=== PATIENT | male | born 1975 | race Asian ===

== ENCOUNTER 2024-01-29 14:29 | Outpatient (AMB) | payer OTHER, SELFPAY ==
[2024-01-29 14:34] VITALS: BP 124/70; PULSE 84; TEMP 36.9; O2SAT 98; BMI 19.6
--- NOTE | 2024-01-29 14:34 | AM.OFFWIN_ITS ---
Intake Vital Signs 01/29/24 14:34 Height 5 ft 7 in Weight 125 lb BMI 19.6 BP 124/70 Blood Pressure Location Rt brachial Position Sitting Pulse 84 Pulse Source Pulse Oximeter Temp 98.4 F Temp Source Oral Pulse Oximetry (%) 98 Oxygen Delivery Method Room Air Intake Visit Reasons: EP Low Back pain Intake Note: pt c/o lower back pain. Started 3 weeks ago. Improving now. Patient Tobacco Use Status: Never used Tobacco Allergies No Known Allergies Allergy (Verified 01/29/24 15:43) Do you need a note to return to daycare/school/sports/work: No HPI EP Low Back pain HPI Details 48-year-old male presents to the office for a sick visit. Patient has an medical interpreter who is translating. Patient had low back pain for 2 weeks. Pain in the lower back radiating into his legs. No history of trauma or fall. No urinary incontinence. [facility] Medical History (Updated 01/29/24 @ 15:44 by Peterson Baltazar MD) Lower thoracic back pain Social History Patient Tobacco Use Status: Never used Tobacco Physical Exam Vital Signs: Last Vital Signs Temp 98.4 F 01/29/24 14:34 Pulse 84 01/29/24 14:34 BP 124/70 01/29/24 14:34 Pulse Ox 98 01/29/24 14:34 Oxygen Delivery Method Room Air 01/29/24 14:34 BMI result Body Mass Index 19.6 Const General: cooperative and healthy appearing Nutritional Appearance: well nourished Orientation/consciousness: patient oriented x3 Limitations: no limitations HEENT Head: Yes normal to inspection Eyes General: appearance normal, both eyes and all related structures Neck Neck: Yes normal visual inspection Chest Chest palpation & inspection: normal palpation of entire chest wall Resp Effort & Inspection: normal respiratory effort Neuro General: patient oriented x3 Assessment & Plan Assessment & Plan (1) Lower thoracic back pain: Code(s): M54.6 - Pain in thoracic spine Plan: Muscle relaxant called in. Patient was advised to use a heating pad. If symptoms do not get better to follow-up here. Coding Level of Care Code Est Pt Level 3 (12147) Diagnoses Lower thoracic back pain M54.6
== END 2024-01-29 15:48 | disposition home or self-care (01) ==
PROVIDERS: PCP Nurse Practitioner Family; Visit Provider Internal Medicine
DX: M54.6 Pain in thoracic spine (principal)

== ENCOUNTER → 2024-01-29 14:29 | Outpatient (BNVA) | payer OTHER, SELFPAY | PROVIDERS: PCP Nurse Practitioner Family | DX: M54.6 Pain in thoracic spine (principal) ==

== ENCOUNTER 2024-05-27 10:39 | Outpatient (REF) | payer OTHER, SELFPAY ==
[2024-05-27 11:57] LABS: MANUAL DIFF FLAG NO
[2024-05-27 12:34] LABS: Basophils Absolute Auto 0.1 X10*3/uL (0.0-0.2); Basophils Percent Auto 1.1 % (0-2); Eosinophils Absolute Auto 0.1 X10*3/uL (0.0-0.4); Hematocrit 48.9 % (42.0-52.0); Imm Gran Abs Auto 0.02 X10*3/uL (0.00-0.03); Imm Gran Pct Auto 0.4 % (0.0-0.4); Lymphocytes Absolute Auto 1.8 X10*3/uL (1.2-4.9); Mean Corpuscular HGB Conc 32.7 g/dl (31.0-36.0); Mean Corpuscular Hemoglobin 29.9 pg (27.0-33.0); Mean Corpuscular Volume 91.4 fL (80.0-98.0); Mean Platelet Volume 11.4 fL (9.4-12.4); Monocytes Absolute Auto 0.4 X10*3/uL (0.1-1.2); Monocytes Percent Auto 8.2 % (2-11); Neutrophils Percent Auto 55.3 % (45-73); Platelet Count 184 X10*3/uL (160-400); Red Blood Count 5.35 X10*6/uL (4.60-5.80); Red Cell Distribution Width 13.1 % (11.0-16.0); White Blood Count 5.4 X10*3/uL (4.8-10.8)
[2024-05-27 12:40] LABS: Estimated Average Glucose 111 mg/dL; Hemoglobin A1C 147.8294 umol/L; Hemoglobin A1c % 5.5 % (<6.0); Total Hemoglobin (HGBA1C) 4070.1212 umol/L
[2024-05-27 13:12] LABS: Alkaline Phosphatase 55 U/L (39-117); Anion Gap 11 (12-20); Aspartate Amino Transferase 24 U/L (5-37); Bilirubin Total 0.6 mg/dL (0.0-1.0); Blood Urea Nitrogen 21 mg/dL (9-16); Calcium 9.2 mg/dL (8.4-10.2); Carbon Dioxide 29 mmol/L (22-29); Chloride 105 mmol/L (96-108); Cholesterol 233 mg/dL (<200); Estimated Glomerular Filt Rate > 60; Glucose Fasting 93 mg/dL (60-99); HDL Cholesterol 63 mg/dL (>40); LDL Cholesterol Calculated 150 mg/dL (<100); Potassium 4.6 mmol/L (3.3-5.1); Sodium 140 mmol/L (135-145); Total Protein 8.5 g/dL (6.5-8.0); Triglycerides 101 mg/dL (<150)
[2024-05-27 13:25] LABS: Prostate Specific Antigen Scr 0.89 ng/mL (<0.05-4.0)
[2024-05-27 13:28] LABS: Alanine Aminotransferase 29 U/L (0-40); TSH reflex Free T4 2.94 uIU/mL (0.32-4.0); Vitamin D 25-OH Total 41.6 ng/mL (>30)
== END 2024-05-27 10:40 | disposition home or self-care (01) ==
LOC: HO.LAB 10:39
PROVIDERS: PCP Nurse Practitioner Family; Visit Provider Internal Medicine
DX: Z00.00 Encounter for general adult medical examination without abnormal findings (principal); M54.6 Pain in thoracic spine; K21.9 Gastro-esophageal reflux disease without esophagitis; E78.00 Pure hypercholesterolemia, unspecified; R73.01 Impaired fasting glucose; E55.9 Vitamin D deficiency, unspecified; D64.9 Anemia, unspecified; Z12.5 Encounter for screening for malignant neoplasm of prostate
CPT/HCPCS: 36415; 80053; 80061; 82306; 83036; 84153; 84443; 85025; 96127

== ENCOUNTER 2024-05-27 10:39 | Outpatient (AMB) | payer OTHER, SELFPAY ==
[2024-05-27 10:40] VITALS: BP 130/82; PULSE 77; O2SAT 98; BMI 19.6
--- NOTE | 2024-05-27 10:40 | A.OFFPC_ITS ---
Vital Signs 05/27/24 10:40 Height 5 ft 7 in Weight 125 lb BMI 19.6 BP 130/82 Blood Pressure Location Lt brachial Position Sitting Pulse 77 Pulse Source Pulse Oximeter Pulse Oximetry (%) 98 Oxygen Delivery Method Room Air Intake Visit Reasons: Establish care Accompanied by: Self / Same As Patient Allergies No Known Allergies Allergy (Verified 05/27/24 10:57) Medication List - Last Reconciled 05/27/24 by Toribio Isaac MD cyclobenzaprine 10 mg PO BEDTIME Tobacco use date assessed: 05/27/24 Dental Screening Dental Screen Date: 05/27/24 Did you have a dental visit in the last 12 months?: No Did you have a dental problem in the last 6 months where you did not have access to dental care?: No Was dental information given to patient?: No HPI Establish care HPI Details Patient comes in today to establish care His previous PCP was at [place] but states that he has not seen a doctor in several years Patient states that he has been experiencing on and off stomach discomfort at times lately States that he has been self-medicating with unrecalled OTC meds (possibly Prilosec) recently with (+) relief of his symptoms Also reports that he has been experiencing on and off pain over his lower back at times lately 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 and sometimes has to carry and move heavy boxes and weights, which makes his low back pain feel worse for a while States that he feels okay otherwise He denies any headaches or dizziness Denies any chest pains, no increased shortness of breath No nausea/vomiting; states that his abdominal pain has improved significantly with the OTC medication that he has been taking recently No change in bowel habits noted He denies any acute urinary symptoms [facility], [facility] Medical History (Updated 06/02/24 @ 04:06 by Toribio Isaac MD) Lower thoracic back pain Surgical History (Updated 06/02/24 @ 03:57 by Toribio Isaac MD) No pertinent past surgical history Social History Housing: House Patient Tobacco Use Status: Never used Tobacco e-Cigarette/Vaping Use: Never Used service: No Current occupational status: employed Current occupational exposures/hazards: No Cognitive needs: No Hearing needs: No Vision needs: No Questionnaire PHQ-9 Over the last 2 weeks, how often have you been bothered by any of the following problems? 1. Little interest or pleasure in doing things: not at all 2. Feeling down, depressed, or hopeless: not at all 3. Trouble falling or staying asleep, or sleeping too much: not at all 4. Feeling tired or having little energy: not at all 5. Poor appetite or overeating: not at all 6. Feeling bad about yourself - or that you are a failure or have let yourself or your family down: not at all 7. Trouble concentrating on things, such as reading the newspaper or watching television: not at all 8. Moving or speaking so slowly that other people could have noticed. Or the opposite - being so fidgety or restless that you have been moving around a lot more than usual: not at all 9. Thoughts that you would be better off or of hurting yourself in some way: not at all Total score: 0 Depression Screening Interpretation: Negative Depression Screening Done: Yes 80381 - PHQ-9 Billing: Yes Source: Developed by Drs. Vikas Spencer, Stefany Laboy, Bc Sweeney and colleagues, with an educational jeanne from [employer]. Thrive Questionnaire Date Thrive assessed: 05/27/24 I am a: Patient What is your living situation today?: I have a steady place to live Within the past 12 months, did the food you bought not last and you didn't have the money to get more?: Never true Within the past 12 months, did you worry whether your food would run out before you got money to buy more?: Never true Do you have trouble paying for medicines?: No Do you have trouble getting transportation to medical appointments?: No Do you have trouble paying your heating and electricity bill?: No Do you have trouble taking care of your child, family member or friend?: No Do you have trouble with day-to-day activities such as bathing, preparing meals, shopping, managing finances, etc.?: No Are you currently unemployed and looking for a job?: No Are you interested in more education?: No Please select the resources that you would like help with: None Currently or been in a relationship where the following occur: No concerns reported THRIVE Score: 0 AUDIT C Alcohol Use Questionnaire (AUDIT-C) 1. How often do you have a drink containing alcohol?: Never 3. How often do you have six or more drinks on one occasion?: Never Total Score: 0 Score Reviewed/Action Taken: Yes TALON-7 AMB Questionnaire TALON-7 Date TALON - 7 assessed: 05/27/24 Feeling nervous, anxious, or on edge: 0 = Not at all Not being able to stop or control worryin = Not at all Worrying too much about different things: 0 = Not at all Trouble relaxin = Not at all Being so restless that it is hard to sit still: 0 = Not at all Becoming easily annoyed or irritable: 0 = Not at all Feeling afraid as if something awful might happen: 0 = Not at all Total TALON-7 score (0-4 normal; 5-9 mild; 10-14 moderate; 15-21 severe): 0 Source: Developed by Drs. Vikas Spencer, Stefany Laboy, Bc Sweeney and colleagues, with an educational jeanne from [employer]. Review of Systems Const Denies chills, Denies fatigue, Denies fever(s), Denies headache(s), Denies malaise and Denies weakness Eyes Denies blurry vision, Denies change in vision, Denies irritation and Denies itchy eyes ENT Denies dysphagia, Denies dizziness, Denies otalgia, Denies headache(s), Denies nasal congestion, Denies neck pain, Denies odynophagia and Denies sore throat Card Denies chest pain, Denies rapid heart rate, Denies irregular heart rhythm, Denies palpitations and Denies dyspnea Resp Denies chest congestion, Denies cough, Denies dyspnea and Denies wheezing GI Denies abdominal pain, Denies bloating, Denies constipation, Denies dysphagia, Denies heartburn, Denies diarrhea, Denies nausea, Denies odynophagia and Denies vomiting Denies hematuria, Denies difficulty urinating, Denies dysuria, Denies urinary frequency and Denies urinary urgency Musc Reports back pain (on and off, over the lower half of his back), Denies arthralgias, Denies joint swelling, Denies muscle weakness and Denies neck pain Skin/Breast Denies change in pigmentation, Denies lesions, Denies rash and Denies unusual bruising Neuro Denies dizziness, Denies headache(s), Denies paresthesias and Denies weakness Endo Denies fatigue and Denies palpitations Aller/Immun Denies itchy eyes and Denies wheezing Physical exam (Primary Care) Vital Signs: Last Vital Signs Pulse 77 05/27/24 10:40 BP 130/82 05/27/24 10:40 Pulse Ox 98 05/27/24 10:40 Oxygen Delivery Method Room Air 05/27/24 10:40 BMI result Body Mass Index 19.6 Tobacco/Smoking Status: Tobacco use Status Tobacco use date assessed 05/27/24 05/27/24 10:42 Patient Tobacco Use Status Never used Tobacco 05/27/24 10:42 e-Cigarette/Vaping Use Never Used 05/27/24 10:45 PHQ-9: PHQ-9 Score PHQ-9: Total score 0 05/27/24 11:20 Depression Screening Interpretation: Negative Thrive Assessment: Date of Thrive Assessment Date Thrive assessed 05/27/24 05/27/24 10:45 Currently or been in a relationship where the following occur: No concerns reported Const General: no acute distress, alert and awake Orientation/consciousness: patient oriented x3 HENMT Head: Yes normocephalic and Yes atraumatic Ears: external ears normal, TM's normal bilaterally and EAC's normal General nose exam: No nasal discharge present Face and sinus: Yes normal facial exam and Yes sinuses nontender Teeth and gingiva: dentition normal Throat: Yes posterior oropharynx normal and Yes tonsils normal (no TP congestion) Eyes Eyelids: Yes eyelids normal Conjunctivae: conjunctivae normal Pupils: Equal, round and reactive pupils present EOM: EOMs intact bilaterally Neck Neck: Yes supple and No lymphadenopathy Thyroid: Thyroid normal Resp Auscultation: clear to auscultation bilaterally, no rales and no wheezes Cardio Rate: regular rate Rhythm: regular rhythm Heart sounds: no murmurs GI Palpation (GI): Soft to palpation, nontender and No hepatosplenomegaly present Auscultation: normal bowel sounds General: Yes no CVA tenderness Back/Spine/Pelvis Back: no CVA tenderness Thoracic/Lumbar Spine: thoracic spinal tenderness (mild, over the lower half of the thoracic spine) and lumbar spinal tenderness (mild) Skin Lesions: no lesions Rashes: no rashes Neuro General: patient oriented x3, moves all extremities, no focal motor deficits and CN's II-XI intact bilaterally Cranial nerves: Yes Equal, round and reactive pupils present Cognition (Neuro): normal cognition Gait exam (Neuro): Normal gait present Extrem General: Yes no clubbing, cyanosis or edema Coding Level of Care Code New Pt Prev Care 40-64y(33027) Diagnoses Annual physical exam Z00. Lower thoracic back pain M54.6 Gastroesophageal reflux disease without esophagitis K21.9 Esophagitis presence: without esophagitis Colon cancer screening Z12.11 Additional Codes PHQ-9 - 11565 - PHQ-9 Billing: Yes ([id number]) Assessment & Plan Assessment & Plan (1) Annual physical exam: Code(s): Z00. - Encounter for general adult medical examination without abnormal findings Category: Medical Plan: Check labs He has never had a screening colonoscopy done before (2) Lower thoracic back pain: Code(s): M54.6 - Pain in thoracic spine Category: Medical Plan: Have advised patient that his recurrent low back pain is most likely what he does at work Discussed activity and weight-lifting restrictions Will consider sending him for x-rays of the thoracolumbar spine for further evaluation if his low back pain keeps recurring often or if it progresses (3) GERD (gastroesophageal reflux disease): Code(s): K21.9 - Gastro-esophageal reflux disease without esophagitis Category: Medical Qualifiers: Esophagitis presence: without esophagitis Qualified Code(s): K21.9 - Gastro-esophageal reflux disease without esophagitis Plan: Discussed that his previous abdominal discomfort is likely due to GERD As his symptoms appear to have resolved with Tx with OTC PPI, will hold off on additional testing or Rx at this time Discussed dietary restrictions in GERD to help minimize symptoms from flaring up (4) Colon cancer screening: Code(s): Z12.11 - Encounter for screening for malignant neoplasm of colon Category: Medical Plan: Will refer him to GI for screening colonoscopy Plan Follow up in 6 months Orders: Orders Comprehensive [place]. Panel Fast 05/27/24 E78.00 - Pure hypercholesterolemia, uns pecified, Z00. - Encounter for general adult medical examination without abnormal findings Lipid Panel 05/27/24 E78.00 - Pure hypercholesterolemia, unspecified, Z00.00 - Encounter for general adult medical examination without abnormal findings TSH reflex Free T4 05/27/24 E78.00 - Pure hypercholesterolemia, unspecified, Z00. - Encounter for general adult medical examination without abnormal findings Hemoglobin A1c 05/27/24 R73.01 - Impaired fasting glucose, Z00. - Encounter for general adult medical examination without abnormal findings Vitamin D 25-OH Total 05/27/24 E55.9 - Vitamin D deficiency, unspecified, Z00. - Encounter for general adult medical examination without abnormal findings Prostate Specific Antigen Scr 05/27/24 Z00.00 - Encounter for general adult medical examination without abnormal findings Complete Blood Count Auto Diff 05/27/24 D64.9 - Anemia, unspecified, Z00. - Encounter for general adult medical examination without abnormal findings UA CC w/rflx Micro + Cult 05/27/24 R30.0 - Dysuria, Z00. - Encounter for general adult medical examination without abnormal findings Referrals Gastroenterology Referral Z12.11 - Encounter for screening for malignant neoplasm of colon
== END 2024-05-27 11:23 | disposition home or self-care (01) ==
LOC: HO.HMCH 10:39
PROVIDERS: PCP Nurse Practitioner Family; Visit Provider Internal Medicine
DX: Z00.00 Encounter for general adult medical examination without abnormal findings (principal); M54.6 Pain in thoracic spine; K21.9 Gastro-esophageal reflux disease without esophagitis; Z12.11 Encounter for screening for malignant neoplasm of colon

== ENCOUNTER 2024-10-21 14:24 | Outpatient (AMB) | payer OTHER, SELFPAY ==
--- NOTE | 2024-10-21 14:25 | MHC.OFFVIS ---
Vital Signs 10/21/24 14:31 Height 5 ft 7 in Weight 120 lb BMI 18.8 BP 138/90 H Blood Pressure Location Rt brachial Position Sitting Pulse 100 Pulse Source Pulse Oximeter Pulse Oximetry (%) 98 Oxygen Delivery Method Room Air Intake Visit Reasons: Colonoscopy Screening Intake Note: New pt for initial colo eval. CC; Pt denies any GI sx or concerns at this time. No pertinent surgical or medical hx. Lead Web Developer Required: Yes Lead Web Developer Services: Lead Web Developer Present Lead Web Developer Name: Uriel Sanchez [id number] Information Interpreted: clinical only Accompanied by: Self / Same As Patient Allergies No Known Allergies Allergy (Verified 10/21/24 14:25) HPI HPI Colonoscopy Screening: Details: 49-year-old male here for preprocedural meeting to discuss a screening colonoscopy. He is referred by Toribio Isaac. PMX GERD Thoracic back pain * SURGICAL HISTORY * ALLERGIES: NKDA * [facility] LABS: Laboratory Tests 05/27/24 11:56 WBC 5.4 Hgb 16.0 Hct 48.9 Plt Count 184 Estimated GFR > 60 Total Bilirubin 0.6 AST 24 ALT 29 Alkaline Phosphatase 55 TSH 2.94 TODAY'S VISIT [place] #[id number] This is his first colonoscopy. He denies any bowel or upper GI problems. He denies any cardiac or respiratory problems. He is naive to anesthesia and sedation. No ID problems. There is no known FHX of CRC or polyps. He works at [employer]! He does [employer]. [facility] Medical History (Updated 10/21/24 @ 14:28 by RALPH Ness) Annual physical exam Colon cancer screening Lower thoracic back pain Surgical History No pertinent past surgical history Social History Housing: House Patient Tobacco Use Status: Never used Tobacco e-Cigarette/Vaping Use: Never Used service: No Current occupational status: employed Current occupational exposures/hazards: No Cognitive needs: No Hearing needs: No Vision needs: No Review of Systems Const Denies fatigue, Denies fever(s), Denies night sweats, Denies poor appetite and Denies weight loss ENT Reports Normal hearing present, Denies dental pain, Denies dysphagia, Denies hearing loss, Denies mouth pain, Denies odynophagia, Denies throat swelling, Denies tongue swelling and Reports other (Dentition adequate) Card Reports no additional complaints Resp Reports no additional complaints GI Details: Denies abdominal pain, Denies melena, Denies bloating, Denies hematochezia, Denies constipation, Denies GI cramping, Denies dysphagia, Denies excessive flatus, Denies early satiety, Denies heartburn, Denies diarrhea, Denies nausea, Denies odynophagia, Denies vomiting and Denies hematemesis Skin/Breast Denies pruritus, Denies lesions, Denies rash and Denies jaundice Neuro Reports Normal hearing present and Denies Abnormal speech present Endo Denies fatigue Aller/Immun Denies throat swelling and Denies tongue swelling Physical Exam Const General: cooperative, no acute distress, well developed and well groomed Nutritional Appearance: average body habitus, well nourished and thin Orientation/consciousness: oriented to person, oriented to place and oriented to time Limitations: language barrier HEENT Head: Yes normocephalic and Yes atraumatic Eyes General: appearance normal, both eyes and all related structures Pupils: Equal, round and reactive pupils present Neck Neck: Yes normal visual inspection and Yes no lymphadenopathy Thyroid: Thyroid normal Resp Effort & Inspection: normal respiratory effort and able to speak in complete sentences Auscultation: clear to auscultation bilaterally Cardio Rate: regular rate Rhythm: regular rhythm Heart sounds: Normal, physiologic split S2 sound present Peripheral pulses: radial pulses present and posterior tibial pulses present GI Inspection: No distended and No Abdominal panniculus present Palpation (GI): Soft to palpation, nontender, no guarding, not rigid and No hepatosplenomegaly present Percussion: Yes normal to percussion Auscultation: normal bowel sounds Rectal Exam - Male: Yes deferred Skin General skin exam: no rashes or lesions noted, turgor normal, skin not dry, no jaundice, No spider nevi and no striae Rashes: no rashes Nails: normal Neuro General: oriented to person, oriented to place and oriented to time Cranial nerves: Yes Equal, round and reactive pupils present and Yes Normal hearing present Speech: No Abnormal speech present Extrem General: Yes normal to inspection, No clubbing, No cyanosis and No edema Psych Appearance: grossly normal and well kempt Mental Status: mental status grossly normal Speech and movement: Normal speech and movement present Affect: normal affect Attitude: cooperative Thought process: Normal thought process present and not confabulating Thought content: Normal thought content present Insight: Good insight present (Psych) Judgement: Good judgement present (Psych) Assessment & Plan Assessment & Plan (1) Pre-op examination: Code(s): Z01.818 - Encounter for other preprocedural examination Category: Medical Plan [place] #[id number] This is his first colonoscopy. He denies any bowel or upper GI problems. He denies any cardiac or respiratory problems. He is naive to anesthesia and sedation. No ID problems. There is no known FHX of CRC or polyps. He works at [employer]! He does [employer]. Orders: Orders Colonoscopy - GI Use Only Today Z01.818 - Encounter for other preprocedural examination Medications: New peg 3350-electrolytes 236-22.74-6.74 -5.86 gram (Golytely) until fecal effluent is clear; do not exceed a total volume of 2,000 mL 240 mL PO Q10M 1 day 4,000 mL 0RF Z12.11 - Encounter for screening for malignant neoplasm of colon bisacodyl (Dulcolax (bisacodyl)) 10 mg (2 x 5 mg) PO BEDTIME 2 days 4 tabs 0RF Coding Level of Care Code New Pt Level 3 (60832) Diagnoses Pre-op examination Z01.818
[2024-10-21 14:31] VITALS: BP 138/90; PULSE 100; O2SAT 98; BMI 18.8
== END 2024-10-21 15:07 | disposition home or self-care (01) ==
PROVIDERS: PCP Nurse Practitioner Family; Visit Provider Nurse Practitioner
DX: Z01.818 Encounter for other preprocedural examination (principal); Z12.11 Encounter for screening for malignant neoplasm of colon
CPT/HCPCS: 99203

== ENCOUNTER → 2024-10-21 14:24 | Outpatient (BNVA) | payer OTHER, SELFPAY | PROVIDERS: PCP Nurse Practitioner Family; Visit Provider Nurse Practitioner ==

== ENCOUNTER 2024-11-24 09:50 | Outpatient (AMB) | payer OTHER, SELFPAY ==
[2024-11-24 09:55] VITALS: BP 120/80; PULSE 66; O2SAT 97; BMI 18.7
--- NOTE | 2024-11-24 09:55 | MHC.PC.OV ---
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 Accompanied by: Self / Same As Patient Allergies No Known Allergies Allergy (Verified 11/24/24 10:22) Medication List - Last Reconciled 11/24/24 by Toribio Isaac MD bisacodyl (Dulcolax (bisacodyl)) 10 mg (2 x 5 mg) PO BEDTIME 2 days peg 3350-electrolytes 236-22.74-6.74 -5.86 gram (Golytely) 240 mL PO Q10M 1 day Tobacco use date assessed: 11/24/24 Dental Screening Dental Screen Date: 11/24/24 Did you have a dental visit in the last 12 months?: No Did you have a dental problem in the last 6 months where you did not have access to dental care?: No Was dental information given to patient?: No HPI 6mth f/u HPI Details Patient comes in today for his follow up visit States that he feels okay He was seen by GI for his precolonoscopy appointment last month and was advised that they will notify him when his colonoscopy is scheduled He denies any headaches or dizziness Denies any chest pains, no SOB No nausea/vomiting, no abdominal pain No change in bowel habits noted He would like to know how he did on his labs done back in May 2024 [facility] Medical History (Updated 11/24/24 @ 12:06 by Toribio Isaac MD) Pure hypercholesterolemia Annual physical exam Colon cancer screening Lower thoracic back pain Surgical History No pertinent past surgical history Social History Housing: House Patient Tobacco Use Status: Never used Tobacco e-Cigarette/Vaping Use: Never Used service: No Current occupational status: employed Current occupational exposures/hazards: No Cognitive needs: No Hearing needs: No Vision needs: No Questionnaire PHQ-9 Over the last 2 weeks, how often have you been bothered by any of the following problems? 1. Little interest or pleasure in doing things: not at all 2. Feeling down, depressed, or hopeless: not at all 3. Trouble falling or staying asleep, or sleeping too much: not at all 4. Feeling tired or having little energy: not at all 5. Poor appetite or overeating: not at all 6. Feeling bad about yourself - or that you are a failure or have let yourself or your family down: not at all 7. Trouble concentrating on things, such as reading the newspaper or watching television: not at all 8. Moving or speaking so slowly that other people could have noticed. Or the opposite - being so fidgety or restless that you have been moving around a lot more than usual: not at all 9. Thoughts that you would be better off or of hurting yourself in some way: not at all Total score: 0 Depression Screening Interpretation: Negative Depression Screening Done: Yes 91094 - PHQ-9 Billing: Yes Source: Developed by Drs. Vikas Spencer, Stefany Laboy, Bc Sweeney and colleagues, with an educational jeanne from [employer]. Thrive Questionnaire Date Thrive assessed: 11/24/24 I am a: Patient What is your living situation today?: I have a steady place to live Within the past 12 months, did the food you bought not last and you didn't have the money to get more?: Never true Within the past 12 months, did you worry whether your food would run out before you got money to buy more?: Never true Do you have trouble paying for medicines?: No Do you have trouble getting transportation to medical appointments?: No Do you have trouble paying your heating and electricity bill?: No Do you have trouble taking care of your child, family member or friend?: No Do you have trouble with day-to-day activities such as bathing, preparing meals, shopping, managing finances, etc.?: No Are you currently unemployed and looking for a job?: No Are you interested in more education?: No Please select the resources that you would like help with: None Currently or been in a relationship where the following occur: No concerns reported THRIVE Score: 0 AUDIT C Alcohol Use Questionnaire (AUDIT-C) 1. How often do you have a drink containing alcohol?: Never 3. How often do you have six or more drinks on one occasion?: Never Total Score: 0 Score Reviewed/Action Taken: Yes TALON-7 AMB Questionnaire TALON-7 Date TALON - 7 assessed: 11/24/24 Feeling nervous, anxious, or on edge: 0 = Not at all Not being able to stop or control worryin = Not at all Worrying too much about different things: 0 = Not at all Trouble relaxin = Not at all Being so restless that it is hard to sit still: 0 = Not at all Becoming easily annoyed or irritable: 0 = Not at all Feeling afraid as if something awful might happen: 0 = Not at all Total TALON-7 score (0-4 normal; 5-9 mild; 10-14 moderate; 15-21 severe): 0 Source: Developed by Drs. Vikas Spencer, Stefany Laboy, Bc Sweeney and colleagues, with an educational jeanne from [employer]. Review of Systems Const Denies chills, Denies difficulty sleeping, Denies fatigue, Denies fever(s) and Denies headache(s) ENT Denies dysphagia, Denies dizziness, Denies otalgia, Denies headache(s), Denies neck pain, Denies odynophagia and Denies sore throat Card Denies chest pain, Denies palpitations and Denies dyspnea Resp Denies chest congestion, Denies cough and Denies dyspnea GI Denies abdominal pain, Denies constipation, Denies dysphagia, Denies heartburn, Denies diarrhea, Denies nausea, Denies odynophagia and Denies vomiting Denies difficulty urinating, Denies dysuria, Denies nocturia and Denies urinary frequency Musc Denies back pain and Denies neck pain Skin/Breast Denies rash Neuro Denies dizziness and Denies headache(s) Endo Denies fatigue and Denies palpitations Physical exam (Primary Care) Vital Signs: Last Vital Signs Pulse 66 11/24/24 09:55 BP 120/80 11/24/24 09:55 Pulse Ox 97 11/24/24 09:55 Oxygen Delivery Method Room Air 11/24/24 09:55 BMI result Body Mass Index 18.7 Tobacco/Smoking Status: Tobacco use Status Tobacco use date assessed 11/24/24 11/24/24 09:57 Patient Tobacco Use Status Never used Tobacco 11/24/24 09:57 e-Cigarette/Vaping Use Never Used 11/24/24 09:57 PHQ-9: PHQ-9 Score PHQ-9: Total score 0 11/24/24 09:57 Depression Screening Interpretation: Negative Thrive Assessment: Date of Thrive Assessment Date Thrive assessed 11/24/24 11/24/24 09:57 Currently or been in a relationship where the following occur: No concerns reported Const General: no acute distress and alert HENMT Throat: Yes posterior oropharynx normal and Yes tonsils normal (no TP congestion) Neck Neck: Yes supple and No lymphadenopathy Thyroid: Thyroid normal Resp Auscultation: clear to auscultation bilaterally, no rales and no wheezes Cardio Rate: regular rate Rhythm: regular rhythm Heart sounds: no murmurs GI Palpation (GI): Soft to palpation and nontender Auscultation: normal bowel sounds General: Yes no CVA tenderness Back/Spine/Pelvis Back: no CVA tenderness Thoracic/Lumbar Spine: No lumbar spinal tenderness Skin Rashes: no rashes Extrem General: Yes no clubbing, cyanosis or edema Results Reviewed Results Reviewed: Laboratory Tests 05/27/24 11:56 WBC 5.4 Hgb 16.0 Hct 48.9 Plt Count 184 Sodium 140 Potassium 4.6 Creatinine 1.04 Estimated GFR > 60 Fasting Glucose 93 Hemoglobin A1c % 5.5 Calcium 9.2 AST 24 ALT 29 Triglycerides 101 Cholesterol 233 H LDL Cholesterol, Calc 150 H HDL Cholesterol 63 PSA Screen 0.89 25-OH Vitamin D Total 41.6 TSH 2.94 Coding Level of Care Code Est Pt Level 4 (84615) Diagnoses Pure hypercholesterolemia E78.00 Gastroesophageal reflux disease without esophagitis K21.9 Esophagitis presence: without esophagitis Additional Codes PHQ-9 - 61666 - PHQ-9 Billing: Yes ([id number]) Assessment & Plan Assessment & Plan (1) Pure hypercholesterolemia: Code(s): E78.00 - Pure hypercholesterolemia, unspecified Category: Medical Plan: Results of his labs done back in May 2024 reviewed and discussed with patient - have advised him that his cholesterol level, especially his LDL cholesterol, is elevated Discussed low cholesterol diet Will have him recheck his labs and fasting lipids in 6 months for follow up (2) GERD (gastroesophageal reflux disease): Code(s): K21.9 - Gastro-esophageal reflux disease without esophagitis Category: Medical Qualifiers: Esophagitis presence: without esophagitis Qualified Code(s): K21.9 - Gastro-esophageal reflux disease without esophagitis Plan: Dietary restrictions reinforced Patient states that his abdominal symptoms have improved slightly from previous He has taken OTC PPI previously as needed and states that he has not needed to take any Rx lately Plan To return in 6 months for his next annual physical examination Orders: Orders Lipid Panel 6 Months E78.00 - Pure hypercholesterolemia, unspecified, Z00.00 - Encounter for general adult medical examination without abnormal findings TSH reflex Free T4 6 Months E78.00 - Pure hypercholesterolemia, unspecified, Z00.00 - Encounter for general adult medical examination without abnormal findings UA CC w/rflx Micro + Cult 6 Months R30.0 - Dysuria, Z00.00 - Encounter for general adult medical examination without abnormal findings Complete Blood Count Auto Diff 6 Months D64.9 - Anemia, unspecified, Z00.00 - Encounter for general adult medical examination without abnormal findings Comprehensive [place]. Panel Fast 6 Months E78.00 - Pure hypercholesterolemia, unspecified, Z00.00 - Encounter for general adult medical examination without abnormal findings Vitamin D 25-OH Total 6 Months E55.9 - Vitamin D deficiency, unspecified, Z00.00 - Encounter for general adult medical examination without abnormal findings
== END 2024-11-24 10:33 | disposition home or self-care (01) ==
LOC: HO.HMCH 09:50
PROVIDERS: PCP Nurse Practitioner Family; Visit Provider Internal Medicine
DX: E78.00 Pure hypercholesterolemia, unspecified (principal); K21.9 Gastro-esophageal reflux disease without esophagitis

== ENCOUNTER → 2024-11-24 09:50 | Outpatient (BNVA) | payer OTHER, SELFPAY | PROVIDERS: PCP Nurse Practitioner Family; Visit Provider Internal Medicine | DX: K21.9 Gastro-esophageal reflux disease without esophagitis (principal); R30.0 Dysuria; E78.00 Pure hypercholesterolemia, unspecified; D64.9 Anemia, unspecified; E55.9 Vitamin D deficiency, unspecified | CPT/HCPCS: 96127 ==